=== PATIENT | female | born 1995 | race Caucasian/White ===

== ENCOUNTER 2018-10-06 21:18 | Emergency (ER) | payer SELFPAY ==
[~2018-10-06] VITALS: Ht 149.9 cm; Wt 45.4 kg
[2018-10-06 21:31] VITALS: Ht 149.9 cm; Wt 45.4 kg
[2018-10-06 21:39] VITALS: BP 129/90
== END 2018-10-06 23:00 | disposition home or self-care (01) ==
LOC: ED 21:18
DX: L03.031 Cellulitis of right toe (principal); F17.210 Nicotine dependence, cigarettes, uncomplicated
CPT/HCPCS: Q0092